=== PATIENT | male | born 1950 ===

== ENCOUNTER 2020-11-10 16:52 | Outpatient (REF) | payer BC, OTHER, SELFPAY ==
[2020-11-10 13:16] LABS: HCT 43.3 % (40.0-50.0); HGB 14.8 g/dL (13.5-17.5); MCH 30.3 pg (27.0-33.0); MCHC 34.2 % (32.0-36.0); MCV 88.7 fL (80-95); MPV 9.1 fL (8.0-11.0); Platelet Count 272 10^3/uL (130-400); RBC 4.88 10^6/uL (4.36-5.78); RDW 13.4 % (11.8-14.1); RDW-SD 43.8 fL
[2020-11-10 13:31] LABS: Anion Gap 5.5 mmol/L (3-11); BUN 20 mg/dL (7-18); CO2 29.5 mmol/L (21.0-32.0); CREATININE 0.9 mg/dL (0.70-1.30); Calcium 8.9 mg/dL (8.5-10.1); Calculated LDL 116 mg/dL (<100); Chloride 108 mmol/L (98-107); Cholesterol 188 mg/dL (<200); Glucose 98 mg/dL (74-106); HDL Cholesterol 45 mg/dL (40-60); Potassium 4.1 mmol/L (3.5-5.1); Sodium 143 mmol/L (136-145); TSH (W/Ref FT4) 6.54 uIU/mL (0.36-3.74); Triglyceride 139 mg/dL (<150)
[2020-11-10 13:49] LABS: FREE T4 0.95 ng/dL (0.76-1.46)
== END 2020-11-10 16:53 | disposition home or self-care (01) ==
LOC: NCHCN 16:52
PROVIDERS: Visit Provider Family Medicine
DX: E03.9 Hypothyroidism, unspecified (principal); E78.5 Hyperlipidemia, unspecified; R03.0 Elevated blood-pressure reading, without diagnosis of hypertension
CPT/HCPCS: 80048; 80061; 85027; 84439; 84443

== ENCOUNTER 2024-05-13 14:39 | Outpatient (REF) | payer MEDICARE, SELFPAY ==
[2024-05-13 16:49] LABS: TSH (W/Ref FT4) 4.12 uIU/mL (0.36-3.74)
[2024-05-13 18:10] LABS: FREE T4 0.84 ng/dL (0.76-1.46)
== END 2024-05-13 14:40 | disposition home or self-care (01) ==
LOC: NCHCN 14:39
PROVIDERS: PCP Family Medicine; Visit Provider Family Medicine
DX: E03.9 Hypothyroidism, unspecified (principal)
CPT/HCPCS: 84439; 84443

== ENCOUNTER 2025-05-19 16:21 | Outpatient (REF) | payer MEDICARE, SELFPAY ==
[2025-05-19 14:55] LABS: Abs Immature Grans 0.01 10^3/uL (0.0-0.06); HCT 45.3 % (40.0-50.0); HGB 15.2 g/dL (13.5-17.5); Immature Grans % 0.1 %; MCH 30.0 pg (27.0-33.0); MCHC 33.6 % (32.0-36.0); MCV 90 fL (80-95); MPV 9.0 fL (8.0-11.0); Platelet Count 281 10^3/uL (130-400); RBC 5.06 10^6/uL (4.36-5.78); RDW 13.4 % (11.8-14.1); RDW-SD 44.2 fL; WBC 7.12 10^3/uL (4.4-10.8)
[2025-05-19 17:54] LABS: Hemoglobin A1C 5.8 % (<5.7)
[2025-05-19 18:32] LABS: Anion Gap 8.0 mmol/L (3-11); BUN 21 mg/dL (7-18); CO2 29.0 mmol/L (21.0-32.0); Calcium 9.2 mg/dL (8.5-10.1); Chloride 108 mmol/L (98-107); Estimated GFR 89.07 (mL/min/1.73m2); Glucose 103 mg/dL (74-106); Potassium 4.1 mmol/L (3.5-5.1); Sodium 145 mmol/L (136-145); TSH (W/Ref FT4) 2.55 uIU/mL (0.36-3.74)
== END 2025-05-19 16:22 | disposition home or self-care (01) ==
LOC: NCHCN 16:21
PROVIDERS: PCP Family Medicine; Visit Provider Family Medicine
DX: E03.9 Hypothyroidism, unspecified (principal)
CPT/HCPCS: 80048; 83036; 84443; 85025

== ENCOUNTER 2025-05-28 13:59 | Outpatient (REF) | payer MEDICARE, SELFPAY ==
--- NOTE | 2025-05-28 11:10 | SKI_PTH ---
PATIENT: Pa Kapadia LOC: [facility] U#:[id number] AGE/SX: 74/M ROOM: RE05/28/[address]: Niraj Wharton : 1950 BED: DIS: 05/28/2025 SPEC #: [id number] RECD: 05/28/25 16:08 STATUS: AMINATA REQ #: [id number] DANDRE: 05/28/25 11:[address]: Niraj Wharton DEPT: Surgical Specimen RECD BY: Mary Valdivia Tissues: 1 - SKIN BIOPSY(SHAVE/PUNCH) Procedures: SKIN LEVEL 4 Comments: [id number]
== END 2025-05-28 14:00 | disposition home or self-care (01) ==
LOC: NCHCN 13:59
PROVIDERS: PCP Family Medicine; Visit Provider Family Medicine
DX: E03.9 Hypothyroidism, unspecified (principal)
CPT/HCPCS: 88305